=== PATIENT | female | born 1990 | race Caucasian/White ===

== ENCOUNTER 2022-09-18 19:38 | Inpatient (IN) | payer OTHER, MEDICAID ==
[~2022-09-18] VITALS: Ht 167.6 cm; Wt 64.0 kg
[2022-09-18 19:44] VITALS: BP_SYST 119
[2022-09-18] MEDS ORDERED: cefTRIAXone 1 GM IVPB PREMIX 50 ML IV ONE (20:00)
[2022-09-18] MEDS ORDERED: NACL 0.9% 1,500 ML IV ONE (20:00)
[2022-09-18 20:53] LABS: BASOPHILS # (AUTO) 0.1 K/uL (0.0-0.2); BASOPHILS % (AUTO) 0.5 % (0.0-2.0); EOSINOPHILS # (AUTO) 0.1 K/uL (0.0-0.4); EOSINOPHILS % (AUTO) 0.7 % (0.0-4.0); HEMATOCRIT 40.3 % (36-48); LYMPHOCYTES # (AUTO) 0.2 K/uL (1.0-5.5); LYMPHOCYTES % (AUTO) 1.3 % (20.5-51.5); MEAN CORPUSCULAR HEMOGLOBIN 32 pg (27-31); MEAN CORPUSCULAR HGB CONC 35 % (32-36); MEAN CORPUSCULAR VOLUME 93 fL (79.0-98.0); MONOCYTES # (AUTO) 0.7 K/uL (0.0-1.0); MONOCYTES % (AUTO) 5.5 % (1.7-9.3); NEUTROPHILS # (AUTO) 11.6 K/uL (1.8-7.7); PLATELET COUNT (AUTO) 318 K/uL (130-430); RED BLOOD CELL COUNT(AUTO) 4.32 MIL/uL (4.2-6.2); RED CELL DISTRIBUTION WIDTH 12.5 % (9.0-15.0); WHITE BLOOD COUNT (AUTO) 12.7 K/uL (4.8-10.8)
[2022-09-18 21:07] LABS: ALBUMIN 3.9 g/dL (3.4-4.8); CALCIUM 8.9 mg/dL (8.4-11.0); CREATININE 0.69 mg/dL (0.55-1.30); TOTAL BILIRUBIN 0.3 mg/dL (0.0-1.0)
[2022-09-18] MEDS ORDERED: VALA500T GT (21:33)
[2022-09-18] MEDS ORDERED: LEVE500T99 GT (21:33)
[2022-09-18] MEDS ORDERED: PIPERACILLIN/TAZO 3.375 GM in NS 50 ML IV ONE (22:00)
[2022-09-18] MEDS ORDERED: LORazepam 2 MG/ML VIAL IVP PRN (22:30)
[2022-09-18] MEDS ORDERED: ONDANSETRON HCL 4 MG/2 ML VIAL IVP PRN (22:30)
[2022-09-18] MEDS ORDERED: MAGNESIUM SULFATE 50 ML IV PRN (22:30)
[2022-09-18] MEDS ORDERED: DOCUSATE SODIUM 100 MG CAPSULE PO PRN (22:30)
[2022-09-18] MEDS ORDERED: POTASSIUM CHLORIDE 20 MEQ TAB.PRT.SR PO PRN (22:30)
[2022-09-18] MEDS ORDERED: MORPHINE 2 MG/ML INJ. SYRINGE IVP PRN ×2 (22:30)
[2022-09-18] MEDS ORDERED: MUPIROCIN 2% TOPICAL OINTMENT 22 GM NS PRN (22:30)
[2022-09-18] MEDS ORDERED: ACETAMINOPHEN 650 MG SUPP.RECT RC ONE (23:15)
[2022-09-19] VITALS (8 sets, daily range): BP systolic 109–136
[2022-09-19] MEDS: NACL 0.9% 1,000 ML IV SCH ×3 (00:14→23:55)
[2022-09-19] MEDS ORDERED: ACETAMINOPHEN 650 MG SUPP.RECT RC ONE (05:14)
[2022-09-19] MEDS ORDERED: ACETAMINOPHEN 650 MG SUPP.RECT RC PRN (05:15)
[2022-09-19 06:03] LABS: BASOPHILS % (AUTO) 0.3 % (0.0-2.0); HEMATOCRIT 36.8 % (36-48); HEMOGLOBIN 12.6 g/dL (12.0-16.0); LYMPHOCYTES # (AUTO) 0.2 K/uL (1.0-5.5); LYMPHOCYTES % (AUTO) 1.4 % (20.5-51.5); MEAN CORPUSCULAR HEMOGLOBIN 32 pg (27-31); MEAN CORPUSCULAR HGB CONC 34 % (32-36); MEAN CORPUSCULAR VOLUME 94 fL (79.0-98.0); MONOCYTES # (AUTO) 0.7 K/uL (0.0-1.0); NEUTROPHILS # (AUTO) 10.4 K/uL (1.8-7.7); NEUTROPHILS % (AUTO) 92.3 % (40.0-70.0); PLATELET COUNT (AUTO) 277 K/uL (130-430); RED BLOOD CELL COUNT(AUTO) 3.93 MIL/uL (4.2-6.2); RED CELL DISTRIBUTION WIDTH 12.6 % (9.0-15.0); WHITE BLOOD COUNT (AUTO) 11.3 K/uL (4.8-10.8)
[2022-09-19 06:21] LABS: BILIRUBIN,URINE NEGATIVE (NEGATIVE); BLOOD, URINE NEGATIVE (NEGATIVE); CLARITY/URINE CLEAR (CLEAR); COLOR,URINE YELLOW (YELLOW); GLUCOSE,URINE NEGATIVE (NEGATIVE); KETONES,URINE NEGATIVE (NEGATIVE); LEUKOCYTE ESTERASE ,URINE NEGATIVE (NEGATIVE); NITRITE, URINE NEGATIVE (NEGATIVE); PH,URINE 6.5 (5.0-8.0); PROTEIN URINE NEGATIVE (NEGATIVE); UROBILINOGEN,URINE 0.2 (0.2-1.0)
[2022-09-19 07:37] LABS: CALCIUM 8.2 mg/dL (8.4-11.0); CREATININE 0.74 mg/dL (0.55-1.30)
[2022-09-19] MEDS ORDERED: levETIRAcetam 500 MG IV PREMIX 100 ML IV SCH (09:00)
[2022-09-19] MEDS: PIPERACILLIN/TAZO 3.375/DEX-IS 50 ML IV SCH ×4 (10:52→23:55)
[2022-09-19] MEDS: levETIRAcetam 500 MG IV PREMIX 100 ML IV SCH ×2 (10:54→20:38)
[2022-09-19] MEDS: HEPARIN SODIUM,PORCINE 5,000 UNITS/ML VIAL SUBCUT SCH ×2 (10:56→20:41)
[2022-09-19] MEDS ORDERED: PIPERACILLIN/TAZO 3.375/DEX-IS 50 ML IV SCH ×2 (12:00)
[2022-09-19] MEDS: ACETAMINOPHEN 325 MG TABLET PO PRN ×2 (12:31→20:39)
[2022-09-19] MEDS: ALBUTEROL SULFATE 0.083% 2.5 MG/3 ML VIAL.NEB INH PRN (18:00)
[2022-09-19] MEDS: ASCORBIC ACID 500 MG TABLET PO SCH (20:39)
[2022-09-20] MEDS: ACETAMINOPHEN 325 MG TABLET PO PRN (03:35)
[2022-09-20] MEDS: NACL 0.9% 1,000 ML IV SCH (04:30)
[2022-09-20] MEDS: PIPERACILLIN/TAZO 3.375/DEX-IS 50 ML IV SCH (05:46)
[2022-09-20 06:01] LABS: BASOPHILS % (AUTO) 0.1 % (0.0-2.0); EOSINOPHILS % (AUTO) 0.1 % (0.0-4.0); HEMATOCRIT 38.5 % (36-48); HEMOGLOBIN 13.1 g/dL (12.0-16.0); LYMPHOCYTES # (AUTO) 0.3 K/uL (1.0-5.5); LYMPHOCYTES % (AUTO) 2.3 % (20.5-51.5); MEAN CORPUSCULAR HEMOGLOBIN 32 pg (27-31); MEAN CORPUSCULAR HGB CONC 34 % (32-36); MEAN CORPUSCULAR VOLUME 94 fL (79.0-98.0); MONOCYTES # (AUTO) 0.4 K/uL (0.0-1.0); MONOCYTES % (AUTO) 2.9 % (1.7-9.3); NEUTROPHILS # (AUTO) 11.4 K/uL (1.8-7.7); NEUTROPHILS % (AUTO) 94.6 % (40.0-70.0); PLATELET COUNT (AUTO) 235 K/uL (130-430); RED BLOOD CELL COUNT(AUTO) 4.09 MIL/uL (4.2-6.2); RED CELL DISTRIBUTION WIDTH 12.7 % (9.0-15.0)
[2022-09-20 06:26] LABS: CALCIUM 8.1 mg/dL (8.4-11.0); CREATININE 0.71 mg/dL (0.55-1.30)
[2022-09-20] MEDS: levETIRAcetam 500 MG IV PREMIX 100 ML IV SCH ×2 (09:55→21:58)
[2022-09-20] MEDS: CHOLECALCIFEROL (VITAMIN D3) 5,000 UNIT TABLET PO SCH (09:56)
[2022-09-20] MEDS: ASCORBIC ACID 500 MG TABLET PO SCH ×2 (09:56→21:58)
[2022-09-20] MEDS: HEPARIN SODIUM,PORCINE 5,000 UNITS/ML VIAL SUBCUT SCH ×2 (09:58→22:00)
[2022-09-20] MEDS ORDERED: DEXAMETHASONE SOD PHOSPHATE 10 MG/ML VIAL IVP SCH (10:00)
[2022-09-20 11:52] VITALS: BP_SYST 124
[2022-09-20] MEDS: cefTRIAXone 1 GM in D5W 50 ML IV SCH (14:05)
[2022-09-20 16:00] VITALS: BP_SYST 121
[2022-09-20 20:00] VITALS: BP_SYST 111
[2022-09-21] VITALS: BP_SYST 123
[2022-09-21] MEDS: ALBUTEROL SULFATE 0.083% 2.5 MG/3 ML VIAL.NEB INH PRN (02:30)
[2022-09-21 07:49] LABS: BASOPHILS % (AUTO) 0.3 % (0.0-2.0); HEMATOCRIT 38.5 % (36-48); HEMOGLOBIN 13.3 g/dL (12.0-16.0); LYMPHOCYTES # (AUTO) 0.2 K/uL (1.0-5.5); LYMPHOCYTES % (AUTO) 3.3 % (20.5-51.5); MEAN CORPUSCULAR HEMOGLOBIN 32 pg (27-31); MEAN CORPUSCULAR HGB CONC 35 % (32-36); MEAN CORPUSCULAR VOLUME 93 fL (79.0-98.0); MONOCYTES # (AUTO) 0.4 K/uL (0.0-1.0); NEUTROPHILS # (AUTO) 5.7 K/uL (1.8-7.7); NEUTROPHILS % (AUTO) 90.4 % (40.0-70.0); PLATELET COUNT (AUTO) 224 K/uL (130-430); RED BLOOD CELL COUNT(AUTO) 4.14 MIL/uL (4.2-6.2); RED CELL DISTRIBUTION WIDTH 12.5 % (9.0-15.0); WHITE BLOOD COUNT (AUTO) 6.3 K/uL (4.8-10.8)
[2022-09-21 08:17] LABS: BILIRUBIN,DIRECT 0.1 mg/dL (0.0-0.3); CALCIUM 8.5 mg/dL (8.4-11.0); CREATININE 0.47 mg/dL (0.55-1.30); TOTAL BILIRUBIN 0.3 mg/dL (0.0-1.0)
[2022-09-21] MEDS: ASCORBIC ACID 500 MG TABLET PO SCH ×2 (09:53→20:24)
[2022-09-21] MEDS: CHOLECALCIFEROL (VITAMIN D3) 5,000 UNIT TABLET PO SCH (09:53)
[2022-09-21] MEDS: HEPARIN SODIUM,PORCINE 5,000 UNITS/ML VIAL SUBCUT SCH ×2 (09:55→20:25)
[2022-09-21] MEDS: levETIRAcetam 500 MG IV PREMIX 100 ML IV SCH ×2 (10:45→20:24)
[2022-09-21 11:25] VITALS: BP_SYST 124
[2022-09-21 12:00] VITALS: BP_SYST 118
[2022-09-21] MEDS: cefTRIAXone 1 GM in D5W 50 ML IV SCH (13:54)
[2022-09-21] MEDS: DEXAMETHASONE SOD PHOSPHATE 10 MG/ML VIAL IVP SCH (13:55)
[2022-09-21 15:20] VITALS: BP_SYST 95
[2022-09-21 16:00] VITALS: BP_SYST 109
[2022-09-22] VITALS: BP_SYST 119
[2022-09-22 07:17] LABS: BASOPHILS % (AUTO) 0.1 % (0.0-2.0); HEMATOCRIT 36.1 % (36-48); HEMOGLOBIN 12.4 g/dL (12.0-16.0); LYMPHOCYTES # (AUTO) 0.1 K/uL (1.0-5.5); LYMPHOCYTES % (AUTO) 5.2 % (20.5-51.5); MEAN CORPUSCULAR HEMOGLOBIN 32 pg (27-31); MEAN CORPUSCULAR HGB CONC 34 % (32-36); MEAN CORPUSCULAR VOLUME 94 fL (79.0-98.0); MONOCYTES # (AUTO) 0.3 K/uL (0.0-1.0); MONOCYTES % (AUTO) 9.7 % (1.7-9.3); NEUTROPHILS # (AUTO) 2.2 K/uL (1.8-7.7); PLATELET COUNT (AUTO) 223 K/uL (130-430); RED BLOOD CELL COUNT(AUTO) 3.84 MIL/uL (4.2-6.2); RED CELL DISTRIBUTION WIDTH 12.6 % (9.0-15.0); WHITE BLOOD COUNT (AUTO) 2.6 K/uL (4.8-10.8)
[2022-09-22 08:39] LABS: CALCIUM 9.5 mg/dL (8.4-11.0); CREATININE 0.5 mg/dL (0.55-1.30)
[2022-09-22] MEDS: CHOLECALCIFEROL (VITAMIN D3) 5,000 UNIT TABLET PO SCH (09:19)
[2022-09-22] MEDS: ASCORBIC ACID 500 MG TABLET PO SCH ×2 (09:19→22:21)
[2022-09-22] MEDS: HEPARIN SODIUM,PORCINE 5,000 UNITS/ML VIAL SUBCUT SCH ×2 (09:21→22:22)
[2022-09-22] MEDS: levETIRAcetam 500 MG IV PREMIX 100 ML IV SCH ×2 (09:24→22:21)
[2022-09-22 09:43] LABS: ALBUMIN 3.2 g/dL (3.4-4.8); BILIRUBIN,DIRECT 0.1 mg/dL (0.0-0.3); TOTAL BILIRUBIN 0.3 mg/dL (0.0-1.0)
[2022-09-22 11:32] VITALS: BP_SYST 112
[2022-09-22] MEDS: cefTRIAXone 1 GM in D5W 50 ML IV SCH (12:04)
[2022-09-22] MEDS: DEXAMETHASONE SOD PHOSPHATE 10 MG/ML VIAL IVP SCH (12:04)
[2022-09-22 15:16] VITALS: BP_SYST 120
[2022-09-22 20:00] VITALS: BP_SYST 118
[2022-09-23 01:07] VITALS: BP_SYST 108
[2022-09-23 07:47] LABS: BASOPHILS % (AUTO) 0.2 % (0.0-2.0); HEMATOCRIT 34.9 % (36-48); HEMOGLOBIN 12.2 g/dL (12.0-16.0); LYMPHOCYTES # (AUTO) 0.2 K/uL (1.0-5.5); LYMPHOCYTES % (AUTO) 4.3 % (20.5-51.5); MEAN CORPUSCULAR HEMOGLOBIN 32 pg (27-31); MEAN CORPUSCULAR HGB CONC 35 % (32-36); MEAN CORPUSCULAR VOLUME 92 fL (79.0-98.0); MONOCYTES # (AUTO) 0.6 K/uL (0.0-1.0); MONOCYTES % (AUTO) 11.4 % (1.7-9.3); NEUTROPHILS # (AUTO) 4.4 K/uL (1.8-7.7); NEUTROPHILS % (AUTO) 84.1 % (40.0-70.0); PLATELET COUNT (AUTO) 237 K/uL (130-430); RED BLOOD CELL COUNT(AUTO) 3.78 MIL/uL (4.2-6.2); RED CELL DISTRIBUTION WIDTH 12.3 % (9.0-15.0)
[2022-09-23 07:53] LABS: ALBUMIN 2.7 g/dL (3.4-4.8); CALCIUM 8.4 mg/dL (8.4-11.0); CREATININE 0.49 mg/dL (0.55-1.30); TOTAL BILIRUBIN 0.2 mg/dL (0.0-1.0)
[2022-09-23 08:10] LABS: WHITE BLOOD COUNT (AUTO) 5.2 K/uL (4.8-10.8)
[2022-09-23] MEDS: ASCORBIC ACID 500 MG TABLET PO SCH ×2 (09:45→20:43)
[2022-09-23] MEDS: CHOLECALCIFEROL (VITAMIN D3) 5,000 UNIT TABLET PO SCH (09:45)
[2022-09-23] MEDS: HEPARIN SODIUM,PORCINE 5,000 UNITS/ML VIAL SUBCUT SCH ×2 (09:47→20:44)
[2022-09-23] MEDS: levETIRAcetam 500 MG IV PREMIX 100 ML IV SCH ×2 (09:48→21:28)
[2022-09-23 11:55] VITALS: BP_SYST 105
[2022-09-23] MEDS: DEXAMETHASONE SOD PHOSPHATE 10 MG/ML VIAL IVP SCH (12:14)
[2022-09-23] MEDS: cefTRIAXone 1 GM in D5W 50 ML IV SCH (12:26)
[2022-09-23 16:18] VITALS: BP_SYST 117
[2022-09-23 20:00] VITALS: BP_SYST 120
[2022-09-24] VITALS: BP_SYST 110
[2022-09-24 03:24] VITALS: BP_SYST 120
[2022-09-24 07:25] LABS: CREATININE 0.54 mg/dL (0.55-1.30); TOTAL BILIRUBIN 0.2 mg/dL (0.0-1.0)
[2022-09-24] MEDS: CHOLECALCIFEROL (VITAMIN D3) 5,000 UNIT TABLET PO SCH (08:52)
[2022-09-24] MEDS: ASCORBIC ACID 500 MG TABLET PO SCH ×2 (08:52→20:03)
[2022-09-24] MEDS: HEPARIN SODIUM,PORCINE 5,000 UNITS/ML VIAL SUBCUT SCH ×2 (08:54→20:05)
[2022-09-24] MEDS: levETIRAcetam 500 MG IV PREMIX 100 ML IV SCH ×2 (08:56→21:00)
[2022-09-24 11:40] VITALS: BP_SYST 100
[2022-09-24 12:03] VITALS: BP_SYST 100
[2022-09-24] MEDS: DEXAMETHASONE SOD PHOSPHATE 10 MG/ML VIAL IVP SCH (12:46)
[2022-09-24] MEDS: cefTRIAXone 1 GM in D5W 50 ML IV SCH (12:47)
[2022-09-24 17:18] VITALS: BP_SYST 111
[2022-09-24 20:00] VITALS: BP_SYST 107
[2022-09-25 00:44] VITALS: BP_SYST 107
[2022-09-25 04:55] VITALS: BP_SYST 97
[2022-09-25 07:41] LABS: BASOPHILS % (AUTO) 0.1 % (0.0-2.0); EOSINOPHILS % (AUTO) 0.4 % (0.0-4.0); HEMATOCRIT 38.7 % (36-48); HEMOGLOBIN 13.4 g/dL (12.0-16.0); LYMPHOCYTES # (AUTO) 0.3 K/uL (1.0-5.5); LYMPHOCYTES % (AUTO) 4.9 % (20.5-51.5); MEAN CORPUSCULAR HEMOGLOBIN 32 pg (27-31); MEAN CORPUSCULAR HGB CONC 35 % (32-36); MEAN CORPUSCULAR VOLUME 94 fL (79.0-98.0); MONOCYTES % (AUTO) 15.2 % (1.7-9.3); NEUTROPHILS # (AUTO) 5.1 K/uL (1.8-7.7); PLATELET COUNT (AUTO) 320 K/uL (130-430); RED BLOOD CELL COUNT(AUTO) 4.14 MIL/uL (4.2-6.2); RED CELL DISTRIBUTION WIDTH 12.4 % (9.0-15.0); WHITE BLOOD COUNT (AUTO) 6.5 K/uL (4.8-10.8)
[2022-09-25 08:00] VITALS: BP_SYST 95
[2022-09-25] MEDS: levETIRAcetam 500 MG IV PREMIX 100 ML IV SCH (08:23)
[2022-09-25] MEDS: CHOLECALCIFEROL (VITAMIN D3) 5,000 UNIT TABLET PO SCH (08:24)
[2022-09-25] MEDS: ASCORBIC ACID 500 MG TABLET PO SCH ×2 (08:24→20:36)
[2022-09-25 08:34] LABS: ALBUMIN 3.3 g/dL (3.4-4.8); CALCIUM 9.2 mg/dL (8.4-11.0); CREATININE 0.54 mg/dL (0.55-1.30); TOTAL BILIRUBIN 0.3 mg/dL (0.0-1.0)
[2022-09-25] MEDS ORDERED: DEC4 PO (08:58)
[2022-09-25 11:42] VITALS: BP_SYST 111
[2022-09-25 12:16] LABS: NEUTROPHILS % (AUTO) 79.4 % (40.0-70.0)
[2022-09-25] MEDS: DEXAMETHASONE SOD PHOSPHATE 10 MG/ML VIAL IVP SCH (12:34)
[2022-09-25] MEDS: cefTRIAXone 1 GM in D5W 50 ML IV SCH (12:34)
[2022-09-25] MEDS: HEPARIN SODIUM,PORCINE 5,000 UNITS/ML VIAL SUBCUT SCH ×2 (12:35→20:39)
[2022-09-25 17:01] VITALS: BP_SYST 115
[2022-09-25 20:00] VITALS: BP_SYST 120
[2022-09-25] MEDS: levETIRAcetam 500 MG TABLET PO SCH (20:37)
[2022-09-26 01:12] VITALS: BP_SYST 109
[2022-09-26 08:00] VITALS: BP_SYST 97
[2022-09-26 08:05] LABS: ALBUMIN 3.4 g/dL (3.4-4.8); CALCIUM 9.3 mg/dL (8.4-11.0); CREATININE 0.44 mg/dL (0.55-1.30); TOTAL BILIRUBIN 0.3 mg/dL (0.0-1.0)
[2022-09-26] MEDS: levETIRAcetam 500 MG TABLET PO SCH (09:30)
[2022-09-26] MEDS: CHOLECALCIFEROL (VITAMIN D3) 5,000 UNIT TABLET PO SCH (09:31)
[2022-09-26] MEDS: ASCORBIC ACID 500 MG TABLET PO SCH (09:31)
[2022-09-26] MEDS: HEPARIN SODIUM,PORCINE 5,000 UNITS/ML VIAL SUBCUT SCH (09:32)
[2022-09-26] MEDS ORDERED: ALBMDI INH (10:38)
[2022-09-26] MEDS: DEXAMETHASONE SOD PHOSPHATE 10 MG/ML VIAL IVP SCH (12:16)
[2022-09-26] MEDS: cefTRIAXone 1 GM in D5W 50 ML IV SCH (13:20)
[2022-09-26 13:43] VITALS: BP_SYST 104
[2022-09-26 16:44] VITALS: BP_SYST 120
[2022-09-26 23:38] VITALS: BP_SYST 142
== END 2022-09-26 13:33 | disposition home or self-care (01) | DRG 177 ==
LOC: SED 19:38 → STU 22:23
PROVIDERS: ADMIT Family Medicine; ATTEND Family Medicine
PROC: 4A00X4Z Measurement of Central Nervous Electrical Activity, External Approach (ICD-10-PCS; principal; 2022-09-18)
PROC: XW033E5 Introduction of Remdesivir Anti-infective into Peripheral Vein, Percutaneous Approach, New Technology Group 5 (ICD-10-PCS; 2022-09-22)
DX: U07.1 COVID-19 (principal); J12.82 Pneumonia due to coronavirus disease 2019; R56.9 Unspecified convulsions; G35 Multiple sclerosis; E83.51 Hypocalcemia; Z20.822 Contact with and (suspected) exposure to COVID-19; Z86.73 Personal history of transient ischemic attack (TIA), and cerebral infarction without residual deficits
CPT/HCPCS: 36415; 36600; 70450-TC; 71045; 76376; 80048; 80053; 80076; 81003; 82803-TC; 83605; 83735; 85025; 85379; 86140; 87040; 92610-GN; 93005; 94640; 94760; 95816; 99285; G0378; J0696; J1100; J1644; J1953; J2543; J7050; J7060; J7613; U0003